=== PATIENT | male | born 1960 | race Caucasian/White ===

== ENCOUNTER 2018-10-17 07:08 | Day surgery (SDC) | payer OTHER ==
[~2018-10-17 07:08] MED LIST: CEFAZOLIN 1G VIAL IVP ONE; CEFAZOLIN 2 Gram 2 GM/50 ML BAG IVPB ONE; WATER STERILE FOR INJECTION 20 ML VIAL MC ONE
[2018-10-17] MEDS ORDERED: BUPIVACAINE 0.25% MPF 30ML VIAL IVP ONE (07:09)
[2018-10-17] MEDS ORDERED: MIDAZOLAM HCL 2MG/2ML VIAL IV ONE (07:09)
[2018-10-17] MEDS ORDERED: PROPOFOL 10 MG/ML VIAL IV ONE (07:09)
[2018-10-17] MEDS ORDERED: SEVOFLURANE 250 ML INH ONE (07:09)
[2018-10-17] MEDS ORDERED: BUPIVACAINE LIPOSOME/PF 133MG/10ML VIAL IV ONE (07:09)
[2018-10-17] MEDS ORDERED: LIDOCAINE 2% MDV (20MG/ML) 20ML VIAL IV ONE (07:09)
[2018-10-17] MEDS ORDERED: MORPHINE SULFATE PF 10MG/10ML VIAL IV ONE (07:09)
[2018-10-17] MEDS ORDERED: FENTANYL PF 100MCG/2ML VIAL IV ONE (07:09)
[2018-10-17] MEDS ORDERED: ONDANSETRON HCL IV 4 MG/2 ML VIAL IVP ONE (07:09)
[2018-10-17] MEDS ORDERED: DEXAMETHASONE 4 MG/ML 1ML VIAL IVP ONE ×2 (07:09)
[2018-10-17] MEDS ORDERED: RINGERS SOLUTION,LACTATED 1,000 ML IV ONE ×2 (09:20→09:45)
[2018-10-17] MEDS ORDERED: BUPIVACAINE 0.5% W/EPI MPF 30 ML VIAL SQ ONE (10:17)
[2018-10-17] MEDS ORDERED: METHYLPREDNISOLONE 40MG/VIAL IU ONE (10:17)
[2018-10-17] MEDS ORDERED: MORPHINE SULFATE 5 MG/ML VIAL IM ONE (10:18)
--- NOTE | 2018-10-18 09:51 | Operative Note ---
DATE OF SURGERY: 10/17/2018 PREOPERATIVE DIAGNOSIS: Left shoulder impingement. POSTOPERATIVE DIAGNOSES: 1. Complex superior glenohumeral labral tear. 2. 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 3. Profound external impingement, left shoulder. 4. Arthrosis left distal clavicle. OPERATION: 1. Left shoulder arthroscopy with intraarticular debridement. 2. Left shoulder open acromioplasty, CA ligament resection, subacromial bursectomy. 3. Left shoulder distal clavicle resection. STAFF SURGEON: Lauro Chávez MD ANESTHESIA: General. PREPARATION: Chloraprep. INDIVIDUAL CONSIDERATIONS: None. PROCEDURE: The patient was taken to the operating room, placed supine on the operating room table. He had a successful induction with general anesthetic. He was then placed in a semi-seated beach chair position. His left arm and shoulder were prepped and draped in the usual fashion. Examination under anesthesia showed no instability. The patient had a posterior portal identified for arthroscopy. Skin was infiltrated with 0.5% Marcaine with epinephrine prior. An 18-gauge spinal needle was placed in the joint, and the joint was inflated with normal saline. A stab wound was made, and a blunt-tipped trocar for the scope was placed in the joint. An anterior accessory portal was then made just inferior to the intact long head of the biceps tendon in a retrograde fashion with a Wissinger leon, and the joint was irrigated out. The patient had a contused rotator cuff. Subscap looked good. Long head was intact. There was frayed labrum superiorly and posteriorly, and this was debrided with a shaver. The humeral head had grade 3 changes with peeling cartilage centrally which was smoothed off with a shaver. There were no loose bodies inferiorly or in the pouch. No significant arthrosis at the glenoid. Rotator cuff again looked contused. Subscap looked good. After irrigation, portals were closed with adarsh. The patient had an anterior approach to the subacromial space and distal clavicle. Skin was again infiltrated with 0.5% Marcaine with epinephrine prior. Sharp dissection carried down through skin and subcutaneous tissues. Small veins were coagulated with a Bovie. An anterior deltoid interval was developed. Care was taken not to split the deltoid more than about 4 cm distal to the anterior tip of the acromion to prevent injury to the axillary nerve. Once in the subacromial space, there was a very thick bursa and spurs. The deltoid was then taken subperiosteally off the anterior aspect of the acromion, over the top of the intact CA ligament, and off the anterior aspect of a highly degenerated distal clavicle. CA ligament was resected with a Bovie. Distal clavicle was resected with an oscillating saw taking about 1 cm. The patient had a downsloping acromion and an anterior acromioplasty was performed taking about 6- 7 mm tapering towards posteromedially to include the spurs at the AC joint. The undersurface was smoothed with a rasp. The patient had a very thick bursa, and this was all debrided out. There was an area in the supraspinatus which was flattened and contused but there was no tear to repair. It looked like a small area had been planed off from the spurs. I put the shoulder now through a full range of motion to ensure no further impingement. After irrigation, the deltoid was reattached to the remaining acromion with multiple interrupted #2 Vicryl going directly through the bony acromion. The periosteal cuff of the distal clavicle was closed with running #2 Vicryl. Anterior deltoid interval was closed with running #1 Vicryl. Subcu was closed with 2-0 plus Vicryl, and skin was closed with adarsh. A 22-gauge spinal needle was introduced into the joint and 4 mL 0.5% Marcaine with epinephrine along with 40 mg of Depo-Medrol was injected into the joint itself. In the subacromial space, an 18-gauge spinal needle was introduced and roughly 15 mL of 0.5% Marcaine with epinephrine along with 40 mg of Depo-Medrol and 10 mg of morphine was injected. A sterile bulky compressive dressing and sling were applied. The patient tolerated the procedure well. Needle and sponge counts were correct. Estimated blood loss was minimal. He was taken back to recovery in good condition. There were no complications. SHIMON
== END 2018-10-17 11:45 | disposition home or self-care (01) ==
LOC: SUR 07:08
PROVIDERS: ATTEND Orthopaedic Surgery
DX: S43.432A Superior glenoid labrum lesion of left shoulder, initial encounter (principal); M94.212 Chondromalacia, left shoulder; M19.012 Primary osteoarthritis, left shoulder; Z87.442 Personal history of urinary calculi
CPT/HCPCS: 76942; C9290; J0690; J1030; J2405; J7120